=== PATIENT | female | born 1965 | race Two or more races ===

== ENCOUNTER 2021-11-17 11:07 | Outpatient (CLI) | payer OTHER | END 2021-11-17 11:17 | disposition home or self-care (01) | LOC: SONOGRAMA 11:07 | PROVIDERS: ATTEND Internal Medicine | DX: K76.0 Fatty (change of) liver, not elsewhere classified (principal) ==

== ENCOUNTER → 2021-11-17 11:37 | Outpatient (CLI) | payer OTHER | END | disposition home or self-care (01) | LOC: NUCLEAR 11:17 | PROVIDERS: ATTEND Internal Medicine | DX: M81.0 Age-related osteoporosis without current pathological fracture (principal) ==

== ENCOUNTER 2021-12-15 08:19 | Outpatient (CLI) | payer OTHER | END 2021-12-15 08:33 | disposition home or self-care (01) | LOC: MAMO-SONO 08:19 | PROVIDERS: ATTEND Internal Medicine | DX: D24.9 Benign neoplasm of unspecified breast (principal); K76.0 Fatty (change of) liver, not elsewhere classified ==